=== PATIENT | female | born 1995 | race Caucasian/White ===

== ENCOUNTER 2017-05-01 15:15 | Emergency (ER) | payer OTHER ==
[~2017-05-01] VITALS: Wt 88.5 kg
[~2017-05-01 15:15] MED LIST: AMOXICILLIN500 M2 PO; BACTRIM DS 8001 TA1 PO; BIRTH CONTROL1 EAC1 PO; IBU-8800 MG PO; KLOR-CON 1010 MEQ PO; MOTRIN800 MG PO; NAPROSYN500 MG PO; NKHM; PRENA1 CHEW1 CT1 PO; VIBRAMYCIN100 MG PO; Z-BEC1 TAB PO; ZOLOFT25 MG PO
[2017-05-01] MEDS ORDERED: AUGMENTIN 875875 MG PO (18:28)
== END 2017-05-01 19:01 | disposition home or self-care (01) ==
LOC: ED 15:15
DX: J01.00 Acute maxillary sinusitis, unspecified (principal); H65.93 Unspecified nonsuppurative otitis media, bilateral; F17.200 Nicotine dependence, unspecified, uncomplicated

== ENCOUNTER 2020-08-15 15:49 | Emergency (ER) | payer OTHER ==
[~2020-08-15] VITALS: Ht 177.8 cm; Wt 88.5 kg
[~2020-08-15 15:49] MED LIST changes: +AUGMENTIN 875875 MG PO
[2020-08-15] MEDS ORDERED: TYLENOL325 M1 PO (16:18)
[2020-08-15] MEDS ORDERED: NAPROSYN500 MG PO (16:18)
== END 2020-08-15 16:27 | disposition home or self-care (01) ==
LOC: ED 15:49
DX: M26.621 Arthralgia of right temporomandibular joint (principal); F17.210 Nicotine dependence, cigarettes, uncomplicated; Z79.2 Long term (current) use of antibiotics; Z98.890 Other specified postprocedural states

== ENCOUNTER → 2020-08-17 | Outpatient (CLI) | payer OTHER ==
[~2020-08-17] MED LIST changes: +TYLENOL325 M1 PO
== END | disposition home or self-care (01) ==
LOC: RAD 11:57
PROVIDERS: ATTEND Nurse Practitioner Primary Care
DX: M54.41 Lumbago with sciatica, right side (principal); M25.521 Pain in right elbow; M25.351 Other instability, right hip

== ENCOUNTER 2020-12-11 12:27 | Emergency (ER) | payer OTHER ==
[~2020-12-11] VITALS: Ht 177.8 cm; Wt 83.9 kg
[2020-12-11 13:04] LABS: BILIRUBIN Negative (Negative); BLOOD Negative (Negative); CLARITY Cloudy (Clear); COLOR Yellow (Yellow); GLUCOSE Negative (Negative); KETONE Negative (Negative); LEUKO ESTERASE 1+ (Negative); NITRITE Negative (Negative)
[2020-12-11 13:17] LABS: BACTERIA 2+; MUCOUS 2+
[2020-12-11 14:41] LABS: BASO % 0.3 % (0.0-1.0); EOS % 0.2 % (1.0-4.0); HEMATOCRIT 36.8 % (37.0-47.0); LYMPH # 2.3 10*3/uL (1.3-4.4); LYMPH % 24.4 % (27.0-41.0); MEAN CELL VOLUME 75.7 fl (81.0-99.0); MEAN CORPUSCULAR HGB CONC 30.4 g/dl (33.0-37.0); MEAN PLATELET VOLUME 9.3 fl (9.6-12.3); MONO # 0.5 10*3/uL (0.1-1.0); MONO % 5.4 % (3.0-9.0); NEUT # 6.5 10*3/uL (2.3-7.9); NEUT % 69.5 % (47.0-73.0); PLATELET COUNT AUTOMATED 425 10*3/uL (130-400); RED BLOOD COUNT 4.86 10*6/uL (4.10-5.10); RED CELL DISTRI WIDTH 18.5 % (0-14.5); WHITE BLOOD COUNT 9.4 10*3/uL (4.8-10.8)
[2020-12-11 14:56] LABS: ALBUMIN 3.6 gm/dl (3.1-4.5); ALKALINE PHOSPHATASE 69 U/L (45-117); BUN 12 mg/dl (7-24); CHLORIDE 110 mmol/L (98-107); CREATININE 0.69 mg/dL (0.55-1.02); LIPASE 163 U/L (73-393); POTASSIUM 3.4 mmol/L (3.5-5.1); SGOT/AST 13 IU/L (3-35); SGPT/ALT 22 U/L (12-78); SODIUM 141 mmol/L (136-145); TOTAL PROTEIN 7.3 gm/dL (6.4-8.2)
[2020-12-11] MEDS ORDERED: PYRIDIUM200 M1 PO (18:06)
[2020-12-11] MEDS ORDERED: FLAGYL500 MG PO (18:06)
[2020-12-11] MEDS ORDERED: CIPRO500 MG PO (18:06)
== END 2020-12-11 19:57 | disposition home or self-care (01) ==
LOC: ED 12:27
PROVIDERS: Emergency Medicine; Physician Assistant
DX: K52.9 Noninfective gastroenteritis and colitis, unspecified (principal); N39.0 Urinary tract infection, site not specified; R10.31 Right lower quadrant pain; F17.200 Nicotine dependence, unspecified, uncomplicated

== ENCOUNTER 2020-12-15 18:04 | Emergency (ER) | payer SELFPAY ==
[~2020-12-15] VITALS: Ht 177.8 cm; Wt 83.9 kg
[~2020-12-15 18:04] MED LIST changes: +CIPRO500 MG PO; +FLAGYL500 MG PO; +PYRIDIUM200 M1 PO
== END 2020-12-15 21:38 | disposition left against medical advice (07) ==
LOC: ED 18:04
DX: R51.9 Headache, unspecified (principal); Z53.21 Procedure and treatment not carried out due to patient leaving prior to being seen by health care provider

== ENCOUNTER 2020-12-17 03:06 | Emergency (ER) | payer SELFPAY | END 2020-12-17 05:08 | disposition home or self-care (01) | LOC: ED 03:06 | DX: F41.9 Anxiety disorder, unspecified (principal); F17.200 Nicotine dependence, unspecified, uncomplicated; Z79.899 Other long term (current) drug therapy ==

== ENCOUNTER 2021-08-07 19:08 | Inpatient (IN) | payer SELFPAY ==
[~2021-08-07] VITALS: Ht 177.8 cm; Wt 82.2 kg
[2021-08-07 19:13] VITALS: BP 144/80
[2021-08-07 20:12] LABS: BASO % 0.3 % (0.0-1.0); EOS # 0.4 10*3/uL (0.0-0.4); EOS % 3.3 % (1.0-4.0); HEMATOCRIT 33.5 % (37.0-47.0); LYMPH # 3.2 10*3/uL (1.3-4.4); LYMPH % 25.8 % (27.0-41.0); MEAN CORPUSCULAR HGB 27.2 pg (27.0-31.0); MEAN CORPUSCULAR HGB CONC 31.9 g/dl (33.0-37.0); MEAN PLATELET VOLUME 8.9 fl (9.6-12.3); MONO # 0.9 10*3/uL (0.1-1.0); NEUT # 7.7 10*3/uL (2.3-7.9); NEUT % 63.3 % (47.0-73.0); PLATELET COUNT AUTOMATED 352 10*3/uL (130-400); RED BLOOD COUNT 3.94 10*6/uL (4.10-5.10); RED CELL DISTRI WIDTH 16.1 % (0-14.5); WHITE BLOOD COUNT 12.2 10*3/uL (4.8-10.8)
[2021-08-07 20:26] LABS: ALBUMIN 2.8 gm/dl (3.1-4.5); ALKALINE PHOSPHATASE 91 U/L (45-117); BUN 13 mg/dl (7-24); CHLORIDE 109 mmol/L (98-107); CREATININE 0.76 mg/dL (0.55-1.02); SGOT/AST 23 IU/L (3-35); SGPT/ALT 59 U/L (12-78); SODIUM 140 mmol/L (136-145); TOTAL PROTEIN 6.5 gm/dL (6.4-8.2)
[2021-08-07] MEDS ORDERED: LEXAPRO20 MG PO (22:26)
[2021-08-07] MEDS ORDERED: VYVANSE70 MG PO (22:27)
[2021-08-07] MEDS ORDERED: VYVANSE20 MG PO (22:28)
[2021-08-08 01:40] VITALS: BP 122/71
[2021-08-08 05:54] LABS: BUN 8 mg/dl (7-24); CHLORIDE 112 mmol/L (98-107); CREATININE 0.62 mg/dL (0.55-1.02); POTASSIUM 3.9 mmol/L (3.5-5.1); SODIUM 140 mmol/L (136-145)
[2021-08-08 06:20] LABS: BASO % 0.4 % (0.0-1.0); EOS # 0.4 10*3/uL (0.0-0.4); HEMATOCRIT 32.4 % (37.0-47.0); LYMPH # 3.6 10*3/uL (1.3-4.4); MEAN CELL VOLUME 84.8 fl (81.0-99.0); MEAN CORPUSCULAR HGB 27.2 pg (27.0-31.0); MEAN CORPUSCULAR HGB CONC 32.1 g/dl (33.0-37.0); MEAN PLATELET VOLUME 9.5 fl (9.6-12.3); MONO # 0.8 10*3/uL (0.1-1.0); MONO % 7.7 % (3.0-9.0); NEUT # 5.6 10*3/uL (2.3-7.9); NEUT % 53.6 % (47.0-73.0); PLATELET COUNT AUTOMATED 357 10*3/uL (130-400); RED BLOOD COUNT 3.82 10*6/uL (4.10-5.10); RED CELL DISTRI WIDTH 16.2 % (0-14.5); WHITE BLOOD COUNT 10.5 10*3/uL (4.8-10.8)
[2021-08-08 09:26] VITALS: BP 129/60
[2021-08-08 21:13] VITALS: BP 139/71
[2021-08-09 02:45] VITALS: BP 125/72
[2021-08-09 07:54] LABS: BASO # 0.1 10*3/uL (0.0-0.1); BASO % 0.7 % (0.0-1.0); EOS # 0.5 10*3/uL (0.0-0.4); EOS % 5.5 % (1.0-4.0); LYMPH # 2.2 10*3/uL (1.3-4.4); MEAN CELL VOLUME 85.6 fl (81.0-99.0); MEAN CORPUSCULAR HGB 27.2 pg (27.0-31.0); MEAN CORPUSCULAR HGB CONC 31.8 g/dl (33.0-37.0); MEAN PLATELET VOLUME 9.2 fl (9.6-12.3); MONO # 0.7 10*3/uL (0.1-1.0); MONO % 7.5 % (3.0-9.0); NEUT # 5.3 10*3/uL (2.3-7.9); NEUT % 61.1 % (47.0-73.0); PLATELET COUNT AUTOMATED 360 10*3/uL (130-400); RED BLOOD COUNT 3.97 10*6/uL (4.10-5.10); RED CELL DISTRI WIDTH 16.1 % (0-14.5); WHITE BLOOD COUNT 8.7 10*3/uL (4.8-10.8)
[2021-08-09 08:00] VITALS: BP 127/56
[2021-08-09 08:06] LABS: BUN 9 mg/dl (7-24); CHLORIDE 110 mmol/L (98-107); CREATININE 0.76 mg/dL (0.55-1.02); SODIUM 140 mmol/L (136-145)
[2021-08-09 12:00] VITALS: BP 150/84
[2021-08-09 16:17] VITALS: BP 139/87
[2021-08-09 20:00] VITALS: BP 140/76
[2021-08-10] VITALS: BP 132/63
[2021-08-10 06:20] LABS: BASO # 0.1 10*3/uL (0.0-0.1); BASO % 0.7 % (0.0-1.0); EOS # 0.5 10*3/uL (0.0-0.4); EOS % 5.7 % (1.0-4.0); HEMATOCRIT 35.9 % (37.0-47.0); LYMPH % 36.2 % (27.0-41.0); MEAN CELL VOLUME 84.7 fl (81.0-99.0); MEAN CORPUSCULAR HGB 26.7 pg (27.0-31.0); MEAN CORPUSCULAR HGB CONC 31.5 g/dl (33.0-37.0); MEAN PLATELET VOLUME 9.3 fl (9.6-12.3); MONO # 0.9 10*3/uL (0.1-1.0); MONO % 11.1 % (3.0-9.0); NEUT # 3.8 10*3/uL (2.3-7.9); NEUT % 45.3 % (47.0-73.0); PLATELET COUNT AUTOMATED 416 10*3/uL (130-400); RED BLOOD COUNT 4.24 10*6/uL (4.10-5.10); RED CELL DISTRI WIDTH 15.7 % (0-14.5); WHITE BLOOD COUNT 8.4 10*3/uL (4.8-10.8)
[2021-08-10 06:29] LABS: CHLORIDE 109 mmol/L (98-107); SODIUM 140 mmol/L (136-145)
[2021-08-10 06:45] LABS: BUN 10 mg/dl (7-24)
[2021-08-10 08:00] VITALS: BP 141/80
[2021-08-10 12:00] VITALS: BP 145/73
[2021-08-10] MEDS ORDERED: SEPTDS PO (14:44)
[2021-08-10] MEDS ORDERED: Bactroban Oint22 GM T (14:44)
[2021-08-10] MEDS ORDERED: VITAMIN D350 MCG PO (14:49)
== END 2021-08-10 15:45 | disposition home or self-care (01) | DRG 872 ==
LOC: ED 19:08 → EDHOLD 22:23 → 4E 08-09 01:46
PROVIDERS: Hospitalist; Physician Assistant; Student in an Organized Health Care Education/Training Program; ADMIT Family Medicine; ATTEND Family Medicine
DX: A41.9 Sepsis, unspecified organism (principal); L02.411 Cutaneous abscess of right axilla; L02.412 Cutaneous abscess of left axilla; L03.111 Cellulitis of right axilla; E44.1 Mild protein-calorie malnutrition; E44.0 Moderate protein-calorie malnutrition; J02.9 Acute pharyngitis, unspecified; Z20.822 Contact with and (suspected) exposure to COVID-19; F17.210 Nicotine dependence, cigarettes, uncomplicated; F90.9 Attention-deficit hyperactivity disorder, unspecified type; D64.9 Anemia, unspecified; E87.8 Other disorders of electrolyte and fluid balance, not elsewhere classified; E55.9 Vitamin D deficiency, unspecified; Z83.3 Family history of diabetes mellitus; Z82.49 Family history of ischemic heart disease and other diseases of the circulatory system; Z71.6 Tobacco abuse counseling; Z79.1 Long term (current) use of non-steroidal anti-inflammatories (NSAID); Z79.899 Other long term (current) drug therapy; Z68.25 Body mass index [BMI] 25.0-25.9, adult

== ENCOUNTER 2021-09-18 15:31 | Emergency (ER) | payer SELFPAY ==
[~2021-09-18 15:31] MED LIST changes: +Bactroban Oint22 GM T; +LEXAPRO20 MG PO; +SEPTDS PO; +VITAMIN D350 MCG PO; +VYVANSE20 MG PO; +VYVANSE70 MG PO
[2021-09-18] MEDS ORDERED: INDERAL XL80 MG PO (16:15)
== END 2021-09-18 16:24 | disposition home or self-care (01) ==
LOC: ED 15:31
DX: T44.7X1A Poisoning by beta-adrenoreceptor antagonists, accidental (unintentional), initial encounter (principal); Z79.899 Other long term (current) drug therapy; Z98.890 Other specified postprocedural states; Z87.891 Personal history of nicotine dependence; Y92.89 Other specified places as the place of occurrence of the external cause

== ENCOUNTER 2021-12-07 19:11 | Emergency (ER) | payer SELFPAY ==
[~2021-12-07] VITALS: Ht 177.8 cm; Wt 86.2 kg
[~2021-12-07 19:11] MED LIST changes: +INDERAL XL80 MG PO
[2021-12-07] MEDS ORDERED: VYVANSE70 MG PO (19:39)
[2021-12-07] MEDS ORDERED: SEPTDS PO (21:06)
== END 2021-12-07 21:22 | disposition home or self-care (01) ==
LOC: ED 19:11
DX: L02.31 Cutaneous abscess of buttock (principal); L02.214 Cutaneous abscess of groin; Z79.899 Other long term (current) drug therapy

== ENCOUNTER 2022-07-15 15:29 | Emergency (ER) | payer SELFPAY ==
[~2022-07-15] VITALS: Wt 83.9 kg
[2022-07-15 16:22] LABS: BASO % 0.5 % (0.0-1.0); EOS % 0.5 % (1.0-4.0); HEMATOCRIT 40.2 % (37.0-47.0); LYMPH # 1.1 10*3/uL (1.3-4.4); LYMPH % 14.2 % (27.0-41.0); MEAN CELL VOLUME 84.8 fl (81.0-99.0); MEAN CORPUSCULAR HGB 27.6 pg (27.0-31.0); MEAN CORPUSCULAR HGB CONC 32.6 g/dl (33.0-37.0); MONO # 0.8 10*3/uL (0.1-1.0); MONO % 10.4 % (3.0-9.0); NEUT # 5.8 10*3/uL (2.3-7.9); PLATELET COUNT AUTOMATED 360 10*3/uL (130-400); RED BLOOD COUNT 4.74 10*6/uL (4.10-5.10); WHITE BLOOD COUNT 7.8 10*3/uL (4.8-10.8)
[2022-07-15 16:48] LABS: ALKALINE PHOSPHATASE 78 U/L (46-116); BUN 11 mg/dl (9-23); CHLORIDE 103 mmol/L (98-107); CREATININE 0.88 mg/dL (0.55-1.02); POTASSIUM 3.4 mmol/L (3.4-5.1); SGPT/ALT 14 U/L (10-49); SODIUM 134 mmol/L (136-145)
[2022-07-15 16:49] LABS: TOTAL PROTEIN 7.4 gm/dL (6.0-8.0)
== END 2022-07-15 17:39 | disposition home or self-care (01) ==
LOC: ED 15:29
PROVIDERS: Nurse Practitioner Family
DX: J10.1 Influenza due to other identified influenza virus with other respiratory manifestations (principal); Z20.822 Contact with and (suspected) exposure to COVID-19; Z79.899 Other long term (current) drug therapy; Z87.891 Personal history of nicotine dependence

== ENCOUNTER 2022-10-04 14:11 | Emergency (ER) | payer MEDICAID ==
[~2022-10-04] VITALS: Wt 77.1 kg
[2022-10-05] MEDS ORDERED: SEPTDS PO (17:54)
[2022-10-05] MEDS ORDERED: CEPHALEXIN500 M1 PO (17:54)
== END 2022-10-04 14:45 | disposition home or self-care (01) ==
LOC: ED 14:11
DX: L98.9 Disorder of the skin and subcutaneous tissue, unspecified (principal); F10.10 Alcohol abuse, uncomplicated; F17.200 Nicotine dependence, unspecified, uncomplicated; Z98.890 Other specified postprocedural states

== ENCOUNTER 2022-10-04 23:08 | Emergency (ER) | payer MEDICAID ==
[~2022-10-04] VITALS: Ht 177.8 cm; Wt 77.1 kg
[2022-10-05] MEDS ORDERED: CEPHALEXIN500 M1 PO (17:54)
[2022-10-05] MEDS ORDERED: SEPTDS PO (17:54)
== END 2022-10-04 23:41 | disposition home or self-care (01) ==
LOC: ED 23:08
DX: L98.9 Disorder of the skin and subcutaneous tissue, unspecified (principal); Z98.890 Other specified postprocedural states; F10.10 Alcohol abuse, uncomplicated; F17.200 Nicotine dependence, unspecified, uncomplicated; F41.0 Panic disorder [episodic paroxysmal anxiety]

== ENCOUNTER 2024-05-18 22:54 | Emergency (ER) | payer MEDICAID ==
[~2024-05-18] VITALS: Ht 177.8 cm; Wt 94.8 kg
[~2024-05-18 22:54] MED LIST changes: +AMLODIPINE BES2.5 MG PO; +CEFDINIR300 MG PO; +CEPHALEXIN500 M1 PO; +CIPROFLOXACIN H10 ML OT; +OMNICEF300 MG PO
[2024-05-19 00:03] LABS: BASO # 0.1 10*3/uL (0.0-0.1); BASO % 0.7 % (0.0-1.0); EOS # 0.3 10*3/uL (0.0-0.4); EOS % 2.6 % (1.0-4.0); HEMATOCRIT 41.3 % (37.0-47.0); LYMPH # 3.9 10*3/uL (1.3-4.4); LYMPH % 37.4 % (27.0-41.0); MEAN CORPUSCULAR HGB 29.3 pg (27.0-31.0); MEAN CORPUSCULAR HGB CONC 31.5 g/dl (33.0-37.0); MEAN PLATELET VOLUME 8.8 fl (9.6-12.3); MONO # 0.7 10*3/uL (0.1-1.0); MONO % 6.3 % (3.0-9.0); NEUT # 5.6 10*3/uL (2.3-7.9); NEUT % 52.8 % (47.0-73.0); PLATELET COUNT AUTOMATED 386 10*3/uL (130-400); RED BLOOD COUNT 4.44 10*6/uL (4.10-5.10); RED CELL DISTRI WIDTH 13.5 % (0-14.5); WHITE BLOOD COUNT 10.5 10*3/uL (4.8-10.8)
[2024-05-19 00:16] LABS: BILIRUBIN Negative (Negative); BLOOD Negative (Negative); CLARITY Clear (Clear); COLOR Yellow (Yellow); GLUCOSE Negative (Negative); KETONE Negative (Negative); LEUKO ESTERASE Negative (Negative); NITRITE Negative (Negative); PH 5.5 (4.5-8.0); SPECIFIC GRAVITY 1.015 (1.001-1.030); UROBILINOGEN 0.2 E.U./dl (0.0-1.0)
[2024-05-19 00:22] LABS: WBC 0-2 wbc/hpf (0-5)
[2024-05-19 00:30] LABS: BUN 11 mg/dl (9-23); CHLORIDE 107 mmol/L (98-107); POTASSIUM 3.8 mmol/L (3.4-5.1)
[2024-05-19] MEDS ORDERED: Amoxicillin/Clavulanate Pota 875 MG TAB PO ONE (01:00)
[2024-05-19] MEDS ORDERED: AMOX-CLAV 875-1 EACH PO (01:00)
== END 2024-05-19 01:11 | disposition home or self-care (01) ==
LOC: ED 22:54
PROVIDERS: Internal Medicine
DX: J02.0 Streptococcal pharyngitis (principal); F17.200 Nicotine dependence, unspecified, uncomplicated; Z79.899 Other long term (current) drug therapy; Z98.890 Other specified postprocedural states